=== PATIENT | male | born 1930 | race Caucasian/White ===

== ENCOUNTER 2017-04-10 17:59 | Emergency (ER) | payer OTHER ==
[~2017-04-10] VITALS: Ht 177.8 cm; Wt 63.5 kg
[2017-04-10 18:02] VITALS: BP 147/109
--- NOTE | 2017-04-10 18:16 | Emergency Room Report ---
History of Present Illness General Chief Complaint: Dyspnea/Respdistress Source: EMS (ANTHONY MERCHANT M.D.) Present Illness HPI 86YOM BIBEMS for low O2. Patient denies any complaints - not sure why he is here History of dementia All other info from review of SNF paperwork: PMHx: combined CHF, HTN, Atrial fib, GERD, pacemaker Patient is DNR/comfort-focused treatment (ANTHONY MERCHANT M.D.) Allergies: Coded Allergies: No Known Allergies (Unverified , 04/10/17) Patient History Past Medical History: other - see HPI Past Surgical History: pacemaker Pertinent Family History: none Social History: Denies: alcohol use, drug use, smoking Immunizations: UTD Reviewed Nursing Documentation: PMH: Agreed, PSxH: Agreed (ANTHONY MERCHANT M.D.) Nursing Documentation-PMH Past Medical History: No History, Except For Hx Cardiac Problems: Yes - HF, Afib Hx Hypertension: Yes (ANTHONY MERCHANT M.D.) Review of Systems All Other Systems: negative except mentioned in HPI (ANTHONY MERCHANT M.D.) Physical Exam Vital Signs Date Time Temp Pulse Resp B/P Pulse Ox O2 Delivery O2 Flow Rate FiO2 04/10/17 17:53 98.6 90 24 173/116 90 Non-Rebreather 15.0 Sp02 EP Interpretation: reviewed, abnormal General Appearance: normal inspection, well appearing, no apparent distress, alert, GCS 15, non-toxic Head: normocephalic, atraumatic Eyes: bilateral eye EOMI, bilateral eye PERRL ENT: normal ENT inspection, hearing grossly normal, normal voice Neck: normal inspection, full range of motion, supple, no bony tend Respiratory: normal inspection, lungs clear, normal breath sounds, no respiratory distress, no retraction, no wheezing Cardiovascular #1: regular rate, rhythm, no edema, irregularly irregular Gastrointestinal: normal inspection, normal bowel sounds, non tender, soft, no guarding, no hernia Genitourinary: no CVA tenderness Musculoskeletal: normal inspection, back normal, normal range of motion, Toma' s Sign negative Neurologic: normal inspection, alert, responsive, senior web analyst III-XII nml as tested, speech normal Psychiatric: normal inspection, judgement/insight normal, mood/affect normal Skin: normal inspection, normal color, no rash Lymphatic: normal inspection (ANTHONY MERCHANT M.D.) Medical Decision Making Medicare Attestation I Anthony Merchant MD hereby attest that the medical record entry for date of service, 08/30/16 accurately reflects signatures/notations that I made in my capacity as MD when I treated/diagnosed the above listed Medicare beneficiary. I attest that this information is true, accurate and complete to the best of my knowledge. I understand that any falsification, omission, or concealment of material fact may subject me to administrative, civil, or criminal liability. This patient warrants hospital admission for extreme of age and has a condition that cannot be treated as outpatient. (ANTHONY MERCHANT M.D.) Diagnostic Impression: Primary Impression: Dyspnea Qualified Codes: R06.00 - Dyspnea, unspecified Additional Impressions: Atrial fibrillation with controlled ventricular response CHF (congestive heart failure) Qualified Codes: I50.9 - Heart failure, unspecified UTI (urinary tract infection) Qualified Codes: N39.0 - Urinary tract infection, site not specified ER Course Dyspnea, hypoxia- - Known atrial fib. Not in RVR here. Endorsed to Dr Peoples at 7pm to followup labs, CXR and endorses for admission. (ANTHONY MERCHANT M.D.) ER Course Hospital Course 86-year-old male presents with reported shortness of breath Clinical course Patient initially seen and evaluated by Dr Merchant; please see his note for full history and physical labs reviewed- noted leukocytosis, hemoglobin/hematocrit stable, electrolytes ok , troponins negative, BNP greater than 4000, UA + bacteria Chest x-ray- R sided consolidation, pacemaker Antibiotics given. Because of insurance patient will be transferred I. I feel this is a highly complex case requiring extensive working including EKG/Rhythm strip, Xray/CT/US, Blood/urine lab work, repeat exams while in ED, and administration of strong opiates/narcotics for pain control, admission to hospital or close patient follow up. Diagnosis - dyspnea, afib wtih RVR, CHF, UTI transferred in serious condition Labs Test 04/10/17 19:35 04/10/17 20:25 04/10/17 21:45 White Blood Count 16.8 K/UL (4.8-10.8) Red Blood Count 4.70 M/UL (4.70-6.10) Hemoglobin 15.5 G/DL (14.2-18.0) Hematocrit 45.2 % (42.0-52.0) Mean Corpuscular Volume 96 FL (80-99) Mean Corpuscular Hemoglobin 33.1 PG (27.0-31.0) Mean Corpuscular Hemoglobin Concent 34.4 G/DL (32.0-36.0) Red Cell Distribution Width 12.9 % (11.6-14.8) Platelet Count 192 K/UL (150-450) Mean Platelet Volume 5.8 FL (6.5-10.1) Neutrophils (%) (Auto) 81.4 % (45.0-75.0) Lymphocytes (%) (Auto) 15.7 % (20.0-45.0) Monocytes (%) (Auto) 2.0 % (1.0-10.0) Eosinophils (%) (Auto) 0.4 % (0.0-3.0) Basophils (%) (Auto) 0.5 % (0.0-2.0) Sodium Level 138 mEQ/L (135-145) Potassium Level 4.3 mEQ/L (3.4-4.9) Chloride Level 100 mEQ/L (98-107) Carbon Dioxide Level 23 mEQ/L (20-30) Anion Gap 15 (5-15) Blood Urea Nitrogen 19 mg/dL (7-23) Creatinine 0.8 mg/dL (0.7-1.2) Estimat Glomerular Filtration Rate mL/min (>60) Glucose Level 103 mg/dL (74-106) Calcium Level 9.2 mg/dL (8.6-10.2) Total Bilirubin 0.9 mg/dL (0.0-1.2) Aspartate Amino Transf (AST/SGOT) 35 U/L (5-40) Alanine Aminotransferase (ALT/SGPT) 16 U/L (3-41) Alkaline Phosphatase 122 U/L (40-129) Total Creatine Kinase 56 U/L (38-174) Creatine Kinase MB < 1.5 ng/mL (< 6.7) Creatine Kinase MB Relative Index 2.6 Troponin I < 0.30 ng/mL (<=0.30) Pro-B-Type Natriuretic Peptide 4321 pg/mL (0-450) Total Protein 7.6 g/dL (6.6-8.7) Albumin 3.3 g/dL (3.5-5.2) Globulin 4.3 g/dL Albumin/Globulin Ratio 0.7 (1.0-2.7) Urine Color Yellow Urine Appearance Turbid Urine pH 7 (4.5-8.0) Urine Specific [place] 1.010 (1.005-1.035) Urine Protein 3+ (NEGATIVE) Urine Glucose (UA) Negative (NEGATIVE) Urine Ketones 1+ (NEGATIVE) Urine Occult Blood 4+ (NEGATIVE) Urine Nitrite Positive (NEGATIVE) Urine Bilirubin Negative (NEGATIVE) Urine Urobilinogen Normal MG/DL (0.0-1.0) Urine Leukocyte Esterase 3+ (NEGATIVE) Urine RBC 5-10 /HPF (0 - 0) Urine WBC Tntc /HPF (0 - 0) Urine Squamous Epithelial Cells None /LPF (NONE/OCC) Urine Bacteria Many /HPF (NONE) Lactic Acid Level 2.10 mmol/L (0.66-2.22) 1.70 mmol/L (0.66-2.22) (LONNIE PEOPLES M.D.) EKG Diagnostic Results Rate: other - Atrial fib ST Segments: no acute changes (ANTHONY MERCHANT M.D.) Rhythm Strip Diag. Results EP Interpretation: yes Rate: 101 Rhythm: NSR, no ectopy, other - PVCs (ANTHONY MERCHANT M.D.) Chest X-Ray Diagnostic Results Chest X-Ray Diagnostic Results : Chest X-Ray Ordered: Yes # of Views/Limited/Complete: 1 View Indication: Shortness of Breath EP Interpretation: Yes Interpretation: no pneumothorax, other - pacemaker. increased conslidation R lung. effusion noted Impression: Other - R sided consolidation Interpreting ER Provider: electronically signed by Lonnie Peoples MD (LONNIE PEOPLES M.D.) Last Vital Signs Date Time Temp Pulse Resp B/P Pulse Ox O2 Delivery O2 Flow Rate FiO2 04/10/17 18:02 98.5 103 32 147/109 97 Room Air 15.0 Status: improved (ANTHONY MERCHANT M.D.) Status: improved (LONNIE PEOPLES M.D.) Disposition: ADMITTED INPATIENT Condition: Serious ANTHONY MERCHANT M.D. Apr 10, 2017 18:16 LONNIE PEOPLES M.D. Apr 10, 2017 23:59
[2017-04-10 20:15] VITALS: BP 155/69
[2017-04-10 20:18] LABS: BASOPHILS % (AUTO) 0.5 % (0.0-2.0); EOSINOPHILS % (AUTO) 0.4 % (0.0-3.0); LYMPHOCYTES % (AUTO) 15.7 % (20.0-45.0); MEAN CORPUSCULAR HEMOGLOBIN 33.1 PG (27.0-31.0); MEAN CORPUSCULAR HGB CONC 34.4 G/DL (32.0-36.0); MEAN CORPUSCULAR VOLUME 96 FL (80-99); MEAN PLATELET VOLUME 5.8 FL (6.5-10.1); NEUTROPHILS % (AUTO) 81.4 % (45.0-75.0); PLATELET COUNT 192 K/UL (150-450); RED CELL DISTRIBUTION WIDTH 12.9 % (11.6-14.8); WHITE BLOOD COUNT 16.8 K/UL (4.8-10.8)
[2017-04-10] MEDS ORDERED: Acetaminophen 650 MG SUPP RECTAL ONE (20:30)
[2017-04-10 20:34] LABS: TROPONIN I < 0.30 ng/mL (<=0.30)
[2017-04-10 20:36] LABS: ALANINE AMINOTRANSFERASE 16 U/L (3-41); ALBUMIN/GLOBULIN RATIO 0.7 (1.0-2.7); ANION GAP 15 (5-15); ASPARTATE AMINO TRANSFERASE 35 U/L (5-40); CALCIUM 9.2 mg/dL (8.6-10.2); CARBON DIOXIDE 23 mEQ/L (20-30); CHLORIDE 100 mEQ/L (98-107); CREATININE 0.8 mg/dL (0.7-1.2); HEMOLYSIS 44; POTASSIUM 4.3 mEQ/L (3.4-4.9); SODIUM 138 mEQ/L (135-145); TOTAL PROTEIN 7.6 g/dL (6.6-8.7)
[2017-04-10] MEDS ORDERED: OMEPRAZOLE20 M2 ORAL (20:39)
[2017-04-10] MEDS ORDERED: VITAMIN C250 MG ORAL (20:39)
[2017-04-10] MEDS ORDERED: LASIX20 M1 ORAL (20:39)
[2017-04-10] MEDS ORDERED: CARVEDILOL25 MG ORAL (20:39)
[2017-04-10] MEDS ORDERED: LEXAPRO10 MG ORAL (20:39)
[2017-04-10] MEDS ORDERED: MULTIVITAMINS1 EAC8 ORAL (20:39)
[2017-04-10] MEDS ORDERED: GERI-KOT8.6 MG PO (20:39)
[2017-04-10] MEDS ORDERED: ATORVASTATIN CA20 MG ORAL (20:39)
[2017-04-10] MEDS ORDERED: ASPIR 8181 MG ORAL (20:39)
[2017-04-10] MEDS ORDERED: LOSARTAN POTASS25 MG ORAL (20:39)
[2017-04-10] MEDS ORDERED: FERROUS SULFAT325 MG ORAL (20:39)
[2017-04-10] MEDS ORDERED: POTASSIUM CHLO10 MEQ ORAL (20:39)
[2017-04-10] MEDS ORDERED: XARELTO15 MG ORAL (20:39)
[2017-04-10 20:46] LABS: CKMB < 1.5 ng/mL (< 6.7)
[2017-04-10 21:03] LABS: APPEARANCE,URINE TURBID; KETONES,URINE 1+ (NEGATIVE); LEUKOCYTE ESTERASE ,URINE 3+ (NEGATIVE); NITRITE,URINE POSITIVE (NEGATIVE); PH,URINE 7 (4.5-8.0); PROTEIN,URINE 3+ (NEGATIVE); UROBILINOGEN,URINE NORMAL MG/DL (0.0-1.0)
[2017-04-10 21:14] LABS: WBC,URINE TNTC /HPF (0 - 0)
[2017-04-10 21:15] LABS: BACTERIA,URINE MANY /HPF
[2017-04-10 21:20] LABS: REFLEX LACTIC ACID YES OR NO YES
[2017-04-10 22:35] VITALS: BP 129/44
[2017-04-10 23:30] VITALS: BP 130/48
[2017-04-11 00:15] VITALS: BP 130/48
[2017-04-11 00:25] VITALS: BP 130/48
--- NOTE | 2017-04-11 12:10 | Diagnostic Imaging Report ---
Indication: Dyspnea Comparison: None A single view chest radiograph was obtained. Findings: There is a pacemaker on the left. Bones are osteopenic. Heart size is normal. There is a vague density over the right hemithorax which is likely accounted for by pleural thickening or fluid. No obvious consolidative opacities seen in either lung. Bones are osteopenic. Impression: Right-sided pleural disease. Acute versus chronic. Pacemaker Osteopenia
== END 2017-04-11 00:25 | disposition short-term general hospital (02) ==
LOC: ENRESERVTM → ENRESERVDT → ENRESERV → EDBD 17:59 → EMR 20:18 → EDBEDREQ 20:27 → EMR 04-11 00:25
DX: I50.9 Heart failure, unspecified (principal); R06.00 Dyspnea, unspecified; I48.91 Unspecified atrial fibrillation; N39.0 Urinary tract infection, site not specified; Z95.0 Presence of cardiac pacemaker; K21.9 Gastro-esophageal reflux disease without esophagitis; F03.90 Unspecified dementia, unspecified severity, without behavioral disturbance, psychotic disturbance, mood disturbance, and anxiety; I10 Essential (primary) hypertension
CPT/HCPCS: 36415; 71010; 80053; 81003; 82550; 82553; 83605; 83880; 84484; 85025; 87040; 87081; 87086; 87181; 93005; 96360; 99284; J1956

== ENCOUNTER 2017-09-07 11:37 | Observation (INO) | payer MEDICARE, MEDICAID ==
[~2017-09-07] VITALS: Ht 177.8 cm; Wt 62.6 kg
[~2017-09-07 11:37] MED LIST: ASPIR 8181 MG ORAL; ATORVASTATIN CA20 MG ORAL; CARVEDILOL25 MG ORAL; FERROUS SULFAT325 MG ORAL; GERI-KOT8.6 MG PO; LASIX20 M1 ORAL; LEXAPRO10 MG ORAL; LOSARTAN POTASS25 MG ORAL; MULTIVITAMINS1 EAC8 ORAL; OMEPRAZOLE20 M2 ORAL; POTASSIUM CHLO10 MEQ ORAL; VITAMIN C250 MG ORAL; XARELTO15 MG ORAL
[2017-09-07 20:00] VITALS: BP 165/83
[2017-09-07 20:24] LABS: BASOPHILS % (AUTO) 1.3 % (0.0-2.0); EOSINOPHILS % (AUTO) 2.8 % (0.0-3.0); LYMPHOCYTES % (AUTO) 33.3 % (20.0-45.0); MEAN CORPUSCULAR HEMOGLOBIN 30.2 PG (27.0-31.0); MEAN CORPUSCULAR HGB CONC 30.5 G/DL (32.0-36.0); MEAN CORPUSCULAR VOLUME 99 FL (80-99); MEAN PLATELET VOLUME 5.5 FL (6.5-10.1); MONOCYTES % (AUTO) 6.1 % (1.0-10.0); NEUTROPHILS % (AUTO) 56.5 % (45.0-75.0); PLATELET COUNT 200 K/UL (150-450); RED BLOOD COUNT 4.64 M/UL (4.70-6.10); RED CELL DISTRIBUTION WIDTH 12.1 % (11.6-14.8); WHITE BLOOD COUNT 6.9 K/UL (4.8-10.8)
[2017-09-07 20:40] LABS: IRON 35 ug/dL (50-175); TOTAL IRON BINDING CAPACITY 230 ug/dL (250-450)
[2017-09-07 20:41] LABS: HEMOGLOBIN A1C 5.9 % (4.3-6.0)
[2017-09-07 20:56] LABS: ALANINE AMINOTRANSFERASE 24 U/L (12-78); ALBUMIN/GLOBULIN RATIO 0.7 (1.0-2.7); ANION GAP 2 mmol/L (5-15); ASPARTATE AMINO TRANSFERASE 33 U/L (15-37); CALCIUM 9.6 MG/DL (8.5-10.1); CARBON DIOXIDE 34 MMOL/L (21-32); CHLORIDE 104 MMOL/L (98-107); CHOLESTEROL 137 MG/DL (< 200); CHOLESTEROL/HDL RATIO 3.3 (3.3-4.4); CREATININE 0.9 MG/DL (0.55-1.30); FERRITIN 288 NG/ML (8-388); MAGNESIUM 1.8 MG/DL (1.8-2.4); POTASSIUM 4.4 MMOL/L (3.5-5.1); SODIUM 140 MMOL/L (136-145); THYROID STIMULATING HORMONE 1.682 uiU/mL (0.358-3.740); TOTAL PROTEIN 7.8 G/DL (6.4-8.2)
[2017-09-07] MEDS ORDERED: Heparin 5000 units/ml inj SUBQ SCH (21:00)
[2017-09-07 21:06] LABS: FOLIC ACID 5.3 NG/ML (8.6-58.9)
[2017-09-07] MEDS ORDERED: Atorvastatin 20mg tab ORAL SCH (22:15)
[2017-09-07] MEDS ORDERED: Sennosides 8.6mg ORAL SCH (22:15)
[2017-09-07] MEDS: Carvedilol 25mg Tab ORAL SCH (22:48)
[2017-09-07] MEDS: Docusate 100mg cap ORAL SCH (22:49)
[2017-09-08] VITALS: BP 153/66
[2017-09-08 03:50] VITALS: BP 122/75
[2017-09-08] MEDS: Docusate 100mg cap ORAL SCH (08:19)
[2017-09-08] MEDS: Carvedilol 25mg Tab ORAL SCH (08:26)
[2017-09-08 08:52] VITALS: BP 132/77
[2017-09-08] MEDS ORDERED: Aspirin EC 81mg tab ORAL SCH (09:00)
[2017-09-08] MEDS ORDERED: Multivitamin w/Minerals tab ORAL SCH (09:00)
[2017-09-08] MEDS ORDERED: Escitalopram Oxalate 5mg tab ORAL SCH (09:00)
[2017-09-08] MEDS ORDERED: Xarelto 15mg tab ORAL SCH (09:00)
--- NOTE | 2017-09-08 09:59 | History and Physical ---
History of Present Illness General Date patient seen: Sep 07, 2017 Time patient seen: 18:00 Reason for Hospitalization: failure to thrive Present Illness HPI 87y/o mle with pmh of dementia, HTN, HLD, GERD, Afib (on AC) who presents from SNF with failure to thrive. Pt is poor historian. Per reports, pt has not been eating tor drinking much. He was noted to have weight loss. Given this concern, he was sent to hospital for further evaluation. Denies f/c, n/v, d/c, chest pain , abd pain, SOB, cough. Allergies: Coded Allergies: No Known Allergies (Unverified , 04/10/17) Medication History Scheduled Ascorbic Acid* (Vitamin C*), 250 MG ORAL TWICE A DAY, (Reported) Aspirin* (Aspir 81*), 81 MG ORAL DAILY, (Reported) Atorvastatin Calcium* (Atorvastatin Calcium*), 20 MG ORAL BEDTIME, (Reported) Carvedilol* (Carvedilol*), 25 MG ORAL EVERY 12 HOURS, (Reported) Dronabinol* (Marinol*), 2.5 MG ORAL QHS Escitalopram Oxalate* (Lexapro*), 5 MG ORAL DAILY, (Reported) Ferrous Sulfate* (Ferrous Sulfate*), 325 MG ORAL BID, (Reported) Furosemide* (Lasix*), 20 MG ORAL TWICE A DAY, (Reported) Losartan Potassium* (Losartan Potassium*), 25 MG ORAL DAILY, (Reported) Multivitamin With Minerals (Multivitamins With Minerals*), 1 TAB ORAL DAILY, ( Reported) Omeprazole (Omeprazole), 20 MG ORAL DAILY, (Reported) Potassium Chloride* (K-Dur*), 10 MEQ ORAL TWICE A DAY, (Reported) Sennosides (Shonda-Marycruz), 17.2 MG PO QHS, (Reported) Miscellaneous Medications Rivaroxaban (Xarelto), 15 MG ORAL, (Reported) Patient History History Provided By: Patient, Medical Record, PMD Healthcare decision maker Resuscitation status Do Not Resuscitate Advanced Directive on File Yes Past Medical/Surgical History Past Medical/Surgical History: (1) HTN (hypertension) (2) HLD (hyperlipidemia) (3) Afib (4) Dementia (5) GERD (gastroesophageal reflux disease) Family History Family History: Patient reports no known family medical history. Social History Social History: (1) lives at [facility] Review of Systems Constitutional: Reports: malaise, weakness Eye: Reports: no symptoms ENT: Reports: no symptoms Respiratory: Reports: no symptoms Cardiovascular: Reports: no symptoms Gastrointestinal: Reports: no symptoms Genitourinary: Reports: no symptoms Musculoskeletal: Reports: no symptoms Skin: Reports: no symptoms Psychiatric: Reports: no symptoms Neurological: Reports: no symptoms Endocrine: Reports: no symptoms Hematologic/Lymphatic: Reports: no symptoms Physical Exam Physical Exam Narrative General: alert, cooperative, no distress, appears stated age, thin Head: normocephalic, without obvious abnormality, atraumatic Eyes: conjunctivae/corneas clear. PERRL, EOM's intact Throat: lips, mucosa, and tongue normal. MMM Neck: supple, symmetrical, trachea midline, and no JVD Lungs: clear to auscultation bilaterally Heart: regular rate and rhythm, S1, S2 normal, no murmur, click, rub or gallop Abdomen: soft, non-tender, non-distended, bowel sounds normal; no masses or organomegaly Extremities: extremities normal, atraumatic, no cyanosis or edema Pulses: 2+ and symmetric Skin: skin color, texture, turgor normal; no rashes or lesions Neurologic: grossly normal, no focal deficits Last 24 Hour Vital Signs Date Time Temp Pulse Resp B/P (MAP) Pulse Ox O2 Delivery O2 Flow Rate FiO2 09/08/17 08:52 97.8 66 18 132/77 100 09/08/17 08:26 87 132/77 09/08/17 03:50 97.3 70 18 122/75 96 09/08/17 00:00 Room Air 09/08/17 00:00 97.7 74 18 153/66 96 09/07/17 22:48 75 165/83 09/07/17 20:00 97.3 75 18 165/83 98 Intake and Output 09/08/17 09/09/17 19:00 07:00 Intake Total 360 ml Balance 360 ml Intake Oral 360 ml Laboratory Tests Test 09/07/17 20:10 White Blood Count 6.9 K/UL (4.8-10.8) Red Blood Count 4.64 M/UL (4.70-6.10) L Hemoglobin 14.0 G/DL (14.2-18.0) L Hematocrit 45.8 % (42.0-52.0) Mean Corpuscular Volume 99 FL (80-99) Mean Corpuscular Hemoglobin 30.2 PG (27.0-31.0) Mean Corpuscular Hemoglobin Concent 30.5 G/DL (32.0-36.0) L Red Cell Distribution Width 12.1 % (11.6-14.8) Platelet Count 200 K/UL (150-450) Mean Platelet Volume 5.5 FL (6.5-10.1) L Neutrophils (%) (Auto) 56.5 % (45.0-75.0) Lymphocytes (%) (Auto) 33.3 % (20.0-45.0) Monocytes (%) (Auto) 6.1 % (1.0-10.0) Eosinophils (%) (Auto) 2.8 % (0.0-3.0) Basophils (%) (Auto) 1.3 % (0.0-2.0) Sodium Level 140 MMOL/L (136-145) Potassium Level 4.4 MMOL/L (3.5-5.1) Chloride Level 104 MMOL/L (98-107) Carbon Dioxide Level 34 MMOL/L (21-32) H Anion Gap 2 mmol/L (5-15) L Blood Urea Nitrogen 19 mg/dL (7-18) H Creatinine 0.9 MG/DL (0.55-1.30) Estimat Glomerular Filtration Rate mL/min (>60) Glucose Level 106 MG/DL (74-106) Hemoglobin A1c 5.9 % (4.3-6.0) Calcium Level 9.6 MG/DL (8.5-10.1) Magnesium Level 1.8 MG/DL (1.8-2.4) Iron Level 35 ug/dL (50-175) L Total Iron Binding Capacity 230 ug/dL (250-450) L Percent Iron Saturation 15 % (15-50) Unsaturated Iron Binding 195 ug/dL (112-346) Ferritin 288 NG/ML (8-388) Total Bilirubin 0.5 MG/DL (0.2-1.0) Aspartate Amino Transf (AST/SGOT) 33 U/L (15-37) Alanine Aminotransferase (ALT/SGPT) 24 U/L (12-78) Alkaline Phosphatase 138 U/L (46-116) H Pro-B-Type Natriuretic Peptide 3739 pg/mL (0-125) H Total Protein 7.8 G/DL (6.4-8.2) Albumin 3.1 G/DL (3.4-5.0) L Globulin 4.7 g/dL Albumin/Globulin Ratio 0.7 (1.0-2.7) L Prealbumin Pending Triglycerides Level 61 MG/DL (30-150) Cholesterol Level 137 MG/DL (< 200) LDL Cholesterol 86 mg/dL (<100) HDL Cholesterol 42 MG/DL (40-60) Cholesterol/HDL Ratio 3.3 (3.3-4.4) Vitamin B12 Level 608 PG/ML (193-986) Vitamin D 25-Hydroxy Pending 25-Hydroxy Vitamin D2 Pending 25-Hydroxy Vitamin D3 Pending Folate 5.3 NG/ML (8.6-58.9) L Thyroid Stimulating Hormone (TSH) 1.682 uiU/mL (0.358-3.740) Height (Feet): 5 Height (Inches): 10.00 Weight (Pounds): 138 Medications Current Medications Medications (Trade) Dose Ordered Sig/[place] Route PRN Reason Start Time Stop Time Status Last Admin Dose Admin Acetaminophen (Tylenol) 650 mg Q4H PRN ORAL Mild Pain (Pain Scale 1-3) 09/07/17 22:15 10/07/17 22:14 Aspirin (Ecotrin) 81 mg DAILY ORAL 09/08/17 09:00 10/08/17 08:59 09/08/17 08:19 Atorvastatin Calcium (Lipitor) 20 mg BEDTIME ORAL 09/07/17 22:15 10/07/17 22:14 09/07/17 22:49 Carvedilol (Coreg) 25 mg EVERY 12 HOURS ORAL 09/07/17 22:15 10/07/17 22:14 09/08/17 08:26 Dextrose (Dextrose 50%) STAT PRN IV Hypoglycemia 09/07/17 22:15 10/07/17 22:14 Docusate Sodium (Colace) 100 mg EVERY 12 HOURS ORAL 09/07/17 22:15 10/07/17 22:14 09/08/17 08:19 Escitalopram Oxalate (Lexapro) 5 mg DAILY ORAL 09/08/17 09:00 10/08/17 08:59 09/08/17 09:26 Ferrous Sulfate (Feosol) 325 mg BID ORAL 09/08/17 09:00 10/08/17 08:59 09/08/17 08:18 Multivitamins Therapeutic (Therapeutic Multivitamin) 1 ea DAILY ORAL 09/08/17 09:00 10/08/17 08:59 09/08/17 09:26 Ondansetron HCl (Zofran) 4 mg Q6H PRN IVP Nausea & Vomiting 09/07/17 22:15 10/07/17 22:14 Potassium Chloride (K-Dur) 10 meq TWICE A DAY ORAL 09/08/17 09:00 10/08/17 08:59 09/08/17 09:26 Rivaroxaban (Xarelto) 15 mg DAILY ORAL 09/08/17 09:00 10/08/17 08:59 09/08/17 08:19 Sennosides (Senokot) 17.2 mg QHS ORAL 09/07/17 22:15 10/07/17 22:14 09/07/17 22:49 Sodium Chloride 1,000 ml @ 75 mls/hr [id number] IV 09/07/17 22:15 10/07/17 22:14 09/08/17 01:38 Assessment/Plan Problem List: (1) Failure to thrive in adult ICD Codes: R62.7 - Adult failure to thrive SNOMED: 750300944 (2) Dementia ICD Codes: F03.90 - Unspecified dementia without behavioral disturbance SNOMED: 82540467 (3) GERD (gastroesophageal reflux disease) ICD Codes: K21.9 - Gastro-esophageal reflux disease without esophagitis SNOMED: 100261164 (4) HTN (hypertension) ICD Codes: I10 - Essential (primary) hypertension SNOMED: 87836267 (5) HLD (hyperlipidemia) ICD Codes: E78.5 - Hyperlipidemia, unspecified SNOMED: 22945237 (6) Afib ICD Codes: I48.91 - Unspecified atrial fibrillation SNOMED: 84831420 Status: stable Assessment/Plan Admit obs Will send failure to thrive workup Consider feeding tube if w/in goals of care PT/OT/ST eval Dental Assistant consult Cont home meds Pain control, bowel regimen Supportive care DVT Prophylaxis: SCD, xarelto Code Status: DNR/DNI Hospital Classification Declaration: Based on this initial evaluation, and depending on the patient's clinical course, I anticipate that this patient will require hospitalization for 1-2 days for failure to thrive and close respiratory /hemodynamic monitoring. Disposition: Once the patient is stable to leave the hospital, I anticipate the patient will likely be discharged to the following environment: back to SNF Discussed with patient/family, nursing staff, SW/CM, [] regarding clinical status, treatment course, and disposition planning. Time of note may not reflect time of encounter. Caty Blanca M.D. Sep 08, 2017 09:58
[2017-09-08 12:11] VITALS: BP 135/76
--- NOTE | 2017-09-08 12:12 | Diagnostic Imaging Report ---
Indication: Shortness of breath Technique: XRAY Chest 1v Comparison: 04/10/2017 Findings: Heart size and mediastinal contours are stable compared to the prior exam. Atherosclerotic calcifications again noted in the aortic arch. Left-sided single lead pacemaker unchanged. There is volume loss in the right with blunting of the right costophrenic sulcus, pleural thickening and hazy opacification on the right. This is similar to findings of prior exam. There is however a patchy opacity in the right midlung peripherally which is new compared to the prior exam and may represent an area of developing infiltrate. Clinical correlation and follow-up exam recommended. Interstitial changes noted in the left base. There is no pneumothorax. The bones are diffusely demineralized. No acute osseous abnormality is seen. Impression: Right-sided pleural disease, similar to prior exam. New patchy opacity in the lateral right mid/upper lung which may be related to pleural disease however developing pneumonia is not entirely excluded. Clinical correlation and follow-up exam recommended.
[2017-09-08] MEDS ORDERED: MARINOL2.5 MG ORAL (12:15)
[2017-09-08] MEDS ORDERED: 1/2 NS 1000ml IV ONE (15:15)
[2017-09-08] MEDS ORDERED: Tubing IV Secondary IV ONE (15:29)
[2017-09-08] MEDS ORDERED: Iron Sucrose 100 MG in NS 55 ML IV SCH (21:00)
--- NOTE | 2017-09-09 08:12 | Discharge Summary ---
Discharge Summary Hospital Course Date of Admission Sep 07, 2017 at 18:11 Date of Discharge Sep 08, 2017 at 15:30 Admitting Diagnosis Failure to thrive Reason for Hospitalization: Failure to thrive, weight loss HPI Rodrick Braga is a 87 year old male who was admitted on Sep 07, 2017 at 18:11 for Progressive Weight Loss and failure to thrive. Pt noted to have poor PO intake at SNF. Consultations None Hospital Course Pt was admitted to obs. Lab evaluation was unremarkable. After discussion w/ pt' s DPOA it was confirmed that pt is DNR/DNI and that he would not want artificial nutrition. Pt was started on an appetite stimulant. Prior to d/c he was HD stable, tolerating PO. Discharge physical exam General: alert, cooperative, no distress, appears stated age, thin Head: normocephalic, without obvious abnormality, atraumatic Eyes: conjunctivae/corneas clear. PERRL, EOM's intact Throat: lips, mucosa, and tongue normal. MMM Neck: supple, symmetrical, trachea midline, and no JVD Lungs: clear to auscultation bilaterally Heart: regular rate and rhythm, S1, S2 normal, no murmur, click, rub or gallop Abdomen: soft, non-tender, non-distended, bowel sounds normal; no masses or organomegaly Extremities: extremities normal, atraumatic, no cyanosis or edema Pulses: 2+ and symmetric Skin: skin color, texture, turgor normal; no rashes or lesions Neurologic: grossly normal, no focal deficits Discharge Medications New Medications: Dronabinol* (Marinol*) 2.5 Mg Capsule 2.5 MG ORAL QHS, #30 CAP 0 Refills Continued Medications: Ascorbic Acid* (Vitamin C*) 250 Mg Tablet 250 MG ORAL TWICE A DAY, #60 TAB 0 Refills Aspirin* (Aspir 81*) 81 Mg Tablet.dr 81 MG ORAL DAILY, TAB Atorvastatin Calcium* (Atorvastatin Calcium*) 20 Mg Tablet 20 MG ORAL BEDTIME, TAB Carvedilol* (Carvedilol*) 25 Mg Tablet 25 MG ORAL EVERY 12 HOURS, TAB Hold if SBP < 110 or HR <60 Escitalopram Oxalate* (Lexapro*) 10 Mg Tablet 5 MG ORAL DAILY for Depression, TAB Ferrous Sulfate* (Ferrous Sulfate*) 325 Mg Tablet 325 MG ORAL BID, #30 TAB 0 Refills Furosemide* (Lasix*) 20 Mg Tablet 20 MG ORAL TWICE A DAY, TAB Losartan Potassium* (Losartan Potassium*) 25 Mg Tablet 25 MG ORAL DAILY, TAB Multivitamin With Minerals (Multivitamins With Minerals*) 1 Each Tablet 1 TAB ORAL DAILY, TAB Omeprazole (Omeprazole) 20 Mg Capsule.dr 20 MG ORAL DAILY, CAP Potassium Chloride* (K-Dur*) 10 Meq Capsule.er 10 MEQ ORAL TWICE A DAY, #14 TAB 0 Refills Rivaroxaban (Xarelto) 15 Mg Tablet 15 MG ORAL for DVT for 30 Days, MG 0 Refills Sennosides (Shonda-Marycruz) 8.6 Mg Tablet 17.2 MG PO QHS, TAB Discharge Condition Upon Discharge: stable Discharge Disposition Patient was discharged to [facility]CF/[facility]F (04) Discharge Diagnoses: (1) Failure to thrive in adult (2) Dementia (3) GERD (gastroesophageal reflux disease) (4) HTN (hypertension) (5) HLD (hyperlipidemia) (6) Afib (7) Weight loss Caty Blanca M.D. Sep 09, 2017 08:12
[2017-09-12 13:09] LABS: VITAMIN D 25-OH TOTAL 26 ng/mL (.)
== END 2017-09-08 15:30 ==
LOC: 4E 18:11 → INTOOBSV 18:11
DX: R62.7 Adult failure to thrive (principal); R63.4 Abnormal weight loss; Z68.1 Body mass index [BMI] 19.9 or less, adult; K21.9 Gastro-esophageal reflux disease without esophagitis; F03.90 Unspecified dementia, unspecified severity, without behavioral disturbance, psychotic disturbance, mood disturbance, and anxiety; I10 Essential (primary) hypertension; E78.5 Hyperlipidemia, unspecified; I48.91 Unspecified atrial fibrillation; Z79.82 Long term (current) use of aspirin; Z79.01 Long term (current) use of anticoagulants
CPT/HCPCS: 36415; 71010; 80053; 80061; 82306; 82607; 82728; 82746; 83036; 83540; 83550; 83735; 83880; 84134; 84443; 85025; 96360; 96361; 97112; 97116; 97162; 97166; 97530 ×2; 97535; G0378 ×2; G8978; G8979; G8987; G8988